=== PATIENT | female | born 1995 | race Caucasian/White ===

== ENCOUNTER 2017-01-05 17:52 | Emergency (ER) | payer MEDICAID, OTHER ==
[2017-01-05 18:07] VITALS: BP 137/96
--- NOTE | 2017-01-05 18:55 | RAD ---
Indication: Chest pain 2 views of the chest including dual energy PA views demonstrate no mediastinal shift. Heart is of normal size and configuration. Lung forbes demonstrate no pleural fluid, pneumonia or pneumothorax. IMPRESSION: No active cardiopulmonary disease is noted.
--- NOTE | 2017-01-05 19:46 | UC ---
Doreen Tuttle Edward, scribed for Juan Carlos Guthrie MD on 01/05/17 at 1828 . Cardiac HPI - HPI Summary HPI Summary: 21 y/o female presents to [facility] c/o intermittent CP that started a week and a half ago. The pain is intermittent, characterized as a dull and aching pressure that comes in intervals ranging from 1 second to as long as 20 minutes. Today the patient experienced an episode of sharp pain in the middle of the chest, lasting for around 1 second, at around 14:30 while the patient was sitting at work. The pain does not radiate anywhere. CP is alleviated by pressing on the chest and not aggravated by anything. Associated sx: lightheadedness after episode today, tingling in toes but not hands. Denies palpitations and pain in legs. Non smoker. No FHx blood clots. PMHx GERD and denies thyroid issues. - History of Current Complaint Chief Complaint: UCChestPain Stated Complaint: CHEST PAIN Time Seen by Provider: 01/05/17 18:18 Hx Obtained From: Patient Onset/Duration: Lasting Weeks - Week and a half ago, Still Present Timing: Intermittent Episodes Lasting: - 1 second to 20 minutes Initial Severity: Mild Current Severity: Mild Chest Pain Location: Mid Sternal Character: Dull/Aching, Sharp/Stabbing - Today @ 14:30 Aggravating: Nothing Alleviating: Nothing - Pushing on chest Associated Signs & Symptoms: Positive: Chest Pain, Tingling - In toes, Weakness - Lightheadedness after episode today (resolved). Negative: Palpitations, Calf Pain/Swelling - Allergy/Home Medications Allergies/Adverse Reactions: Allergies Allergy/AdvReac Type Severity Reaction Status Date / Time No Known Allergies Allergy Unverified 01/05/17 18:06 PMH/Surg Hx/FS Hx/Imm Hx Previously Healthy: No GI/ History: Gastroesophageal Reflux - Chronic - Surgical History Surgical History: Yes Surgery Procedure, Year, and Place: oral sx - Family History Known Family History: Positive: Blood Disorder - No FHx blood clots - Social History Occupation: Student Alcohol Use: Occasionally Substance Use Type: None Smoking Status (MU): Never Smoked Tobacco Review of Systems Constitutional: Negative Skin: Negative Eyes: Negative ENT: Negative Respiratory: Negative Cardiovascular: Chest Pain, Other - Negative for palpitations Gastrointestinal: Other - Chronic GERD Genitourinary: Negative Motor: Negative Neurovascular: Negative Musculoskeletal: Negative - No pain in lower extremities Neurological: Other - Lightheadedness and tingling in toes after episode of sharp CP today Psychological: Negative All Other Systems Reviewed And Are Negative: Yes Physical Exam Triage Information Reviewed: Yes Appearance: Well-Appearing, No Pain Distress Vital Signs: Initial Vital Signs Temp 99.3 F 01/05/17 18:03 Pulse 97 01/05/17 18:03 Resp 20 01/05/17 18:03 BP 137/96 01/05/17 18:03 Pulse Ox 100 01/05/17 18:03 Vital Signs Reviewed: Yes Eye Exam: Normal ENT: Positive: Normal ENT inspection Neck: Positive: Supple, Nontender Respiratory: Positive: Lungs clear, Normal breath sounds Cardiovascular: Positive: RRR Abdomen Description: Positive: Nontender, Soft Bowel Sounds: Positive: Present Musculoskeletal: Positive: Strength Intact, ROM Intact Neurological Exam: Normal Neurological: Positive: Alert Psychological Exam: Normal Skin Exam: Normal Diagnostics - Radiology CXR Xray Interpretation: No Acute Changes - No active cardiopulmonary disease noted. Radiology Interpretation Completed By: Radiologist - EKG Cardiac Rate: NL - @ 80 bpm. Taken @ 17:54. Ectopy: None ST Segment: Normal - Assessment/Plan Course Of Treatment: MEDICATIONS REVIEWED. EKG AND CXR NL. NO CHEST PAIN IN THE CLINIC. NO CALF TENDERNESS/SWELLING. DISCUSSED FURTHER CHEST PAIN EVALUATION WITH THE PATIENT TO INCLUDE GOING TO THE EMERGENCY DEPARTMENT NOW OR F/U WITH [facility] TOMORROW. PATIENT PREFERS TO F/U AT [facility] TOMORROW. - Clinical Impression Provider Diagnoses: INTERMITTENT CHEST PAIN Discharge - Discharge Plan Condition: Stable Disposition: HOME Patient Education Materials: Chest Pain (ED) Referrals: Daniela Cruz MD [Primary Care Provider] - Additional Instructions: FOLLOW UP WITH [facility] TOMORROW. YOUR EKG AND CHEST X-RAY WERE NORMAL. DISCUSS WITH YOUR [facility] PROVIDER WHETHER TO HAVE LAB WORK TO INCLUDE A DDIMER. GET SEEN AGAIN OR GO TO THE EMERGENCY DEPARTMENT FOR ANY WORSENING OF YOUR CONDITION; CHEST PAIN, SHORTNESS OF BREATH, YOU FEEL LIKE YOU ARE GOING TO PASS OUT OR QUESTIONS OR CONCERNS. The documentation as recorded by the Doreen villatoro Edward accurately reflects the service I personally performed and the decisions made by me, Juan Carlos Guthrie MD.
== END 2017-01-05 19:19 | disposition home or self-care (01) ==
LOC: UCEAST 17:52
DX: R07.89 Other chest pain (principal); K21.9 Gastro-esophageal reflux disease without esophagitis
CPT/HCPCS: 71020; 93005; 99211; G0463

== ENCOUNTER 2018-12-08 15:07 | Emergency (ER) | payer OTHER ==
[2018-12-08 15:17] VITALS: BP 127/88
--- NOTE | 2018-12-08 15:25 | UC ---
Skin Complaint HPI - HPI Summary HPI Summary: Tick bite over 1 week ago--seen at [place] and RX Doxycycle as "a bulls eye rash appreared" has taken 2 doses of antibiotic and the rash may be a little larger---patient also has body aches---and she wants to be sure all s ok - History of Current Complaint Chief Complaint: UCSkin Time Seen by Provider: 12/08/18 15:24 Stated Complaint: TICK BITE Hx Obtained From: Patient Hx Last Menstrual Period: 2 weeks ago ?: No Onset/Duration: Sudden Onset, Lasting Days, Still Present Onset Severity: Mild Current Severity: Mild Pain Intensity: 3 Location: Discrete - right side of upper mid back Character: Redness Aggravating Factor(s): Nothing Alleviating Factor(s): Nothing Associated Signs & Symptoms: Positive: Rash Related History: Possible Reaction to: Insect - Allergy/Home Medications Allergies/Adverse Reactions: Allergies Allergy/AdvReac Type Severity Reaction Status Date / Time No Known Allergies Allergy Verified 12/08/18 15:17 Home Medications: Home Medications DOXYcycline CAP(*) [DOXYcycline 100MG CAP(*)] 100 mg PO BID 12/08/18 [History Confirmed 12/08/18] Levonorgestrel (Iud) [Mirena IUD] 20 mcg IU 12/08/18 [History Confirmed 12/08/18 ] PMH/Surg Hx/FS Hx/Imm Hx Previously Healthy: Yes - Surgical History Surgical History: Yes Surgery Procedure, Year, and Place: oral surgery - Family History Known Family History: Positive: None, Blood Disorder - No FHx blood clots - Social History Occupation: Student Lives: With Family Alcohol Use: Weekly Substance Use Type: None Smoking Status (MU): Never Smoked Tobacco Review of Systems All Other Systems Reviewed And Are Negative: Yes Constitutional: Positive: Negative Skin: Positive: Rash - >10 cm bulls eye rash right mid upper back Eyes: Positive: Negative ENT: Positive: Negative Respiratory: Positive: Negative Cardiovascular: Positive: Negative Gastrointestinal: Positive: Negative Genitourinary: Positive: Negative Motor: Positive: Negative Neurovascular: Positive: Negative Musculoskeletal: Positive: Negative Neurological: Positive: Negative Psychological: Positive: Negative Is Patient Immunocompromised?: No Physical Exam Triage Information Reviewed: Yes Appearance: Well-Appearing, No Pain Distress, Well-Nourished Vital Signs: Initial Vital Signs Temp 99 F 12/08/18 15:13 Pulse 96 12/08/18 15:13 Resp 14 12/08/18 15:13 BP 127/88 12/08/18 15:13 Pulse Ox 100 12/08/18 15:13 Vital Signs Reviewed: Yes Eye Exam: Normal Eyes: Positive: Conjunctiva Clear ENT Exam: Normal ENT: Positive: Normal ENT inspection, Hearing grossly normal. Negative: Trismus , Muffled voice, Hoarse voice Dental Exam: Normal Neck exam: Normal Neck: Positive: Supple, Nontender Respiratory Exam: Normal Respiratory: Positive: Chest non-tender, No respiratory distress, No accessory muscle use Cardiovascular Exam: Normal Cardiovascular: Positive: RRR, Pulses Normal, Brisk Capillary Refill Musculoskeletal Exam: Normal Musculoskeletal: Positive: Strength Intact, ROM Intact, No Edema Neurological Exam: Normal Neurological: Positive: Alert, Muscle Tone Normal Psychological Exam: Normal Skin: Positive: Other - >10 cm "bulls eye apprearing rash" right mid upper back Course/Dx - Course Course Of Treatment: continue doxycyline as rx---return for worsening symptoms follow with [facility] - Diagnoses Provider Diagnosis: Erythema migrans (Lyme disease) Discharge - Sign-Out/Discharge Documenting (check all that apply): Patient Departure All imaging exams completed and their final reports reviewed: No Studies - Discharge Plan Condition: Stable Disposition: HOME Patient Education Materials: Doxycycline (By mouth), Lyme Disease (ED), Tick Bite (ED) Referrals: [facility] [Outside] - If Needed - Billing Disposition and Condition Condition: STABLE Disposition: Home
== END 2018-12-08 15:45 | disposition home or self-care (01) ==
LOC: UCEAST 15:07
DX: A69.20 Lyme disease, unspecified (principal)
CPT/HCPCS: 99211; G0463